=== PATIENT | female | born 1950 | race Caucasian/White ===

== ENCOUNTER 2021-04-01 08:16 | Day surgery (SDC) | payer OTHER ==
[~2021-04-01 08:16] MED LIST: AMLODIPINE BESY10 MG PO; ATORVASTATIN CA20 MG PO; BUPR150ER PO; Bactrim Ds Tab1 EACH PO; GABA100; HYDCHL25 PO; Lisinopril2.5 MG PO; Norco 5-325 Ta1 EACH PO; TYLENOL PM PO
--- NOTE | 2021-04-01 08:32 | NUR ---
ARRIVED INTO [facility] ADMISSION STARTED TO UNIT
--- NOTE | 2021-04-01 09:45 | NUR ---
04/01/21 0945 Mary Franks History, Chart, Medications and Allergies reviewed before start of procedure. Patient confirms NPO status and agrees with scheduled surgery. 3-LEAD EKG REVIEWED WITH PHYSICIAN PRIOR TO START OF PROCEDURE. MONITOR INTACT WITH CONTINUOUS PULSE OXIMETRY AND INTERMITTENT BP. PATIENT DETERMINED TO BE ASA APPROPRIATE FOR PROPOFOL SEDATION PRIOR TO START OF PROCEDURE BY .
--- NOTE | 2021-04-01 10:49 | NUR ---
Discharge instructions reviewed with patient. Patient verbalizes understanding. Copy given to patient to take home. Patient States Post-Procedure ride home has been arranged. Discharged via wheelchair to private car for ride home.
--- NOTE | 2021-04-01 12:09 | NUR ---
ASSUMED CARE OF PATIENT RECIEVED REPORT FROM MARY LOU
== END 2021-04-01 23:56 | disposition home or self-care (01) ==
LOC: ORSCMMR 08:16 → ORD 09:30 → ORSCMMR 09:30
PROVIDERS: Internal Medicine Gastroenterology
PROC: 0DBN8ZX Excision of Sigmoid Colon, Via Natural or Artificial Opening Endoscopic, Diagnostic (ICD-10-PCS; principal; 2021-04-01 09:30)
PROC: 0DBM8ZX Excision of Descending Colon, Via Natural or Artificial Opening Endoscopic, Diagnostic (ICD-10-PCS; principal; 2021-04-01 09:30)
PROC: 0DBP8ZX Excision of Rectum, Via Natural or Artificial Opening Endoscopic, Diagnostic (ICD-10-PCS; principal; 2021-04-01 09:30)
DX: Z12.11 Encounter for screening for malignant neoplasm of colon (principal); D12.5 Benign neoplasm of sigmoid colon; D12.4 Benign neoplasm of descending colon; D12.8 Benign neoplasm of rectum; I10 Essential (primary) hypertension; E78.00 Pure hypercholesterolemia, unspecified; F17.210 Nicotine dependence, cigarettes, uncomplicated; Z79.899 Other long term (current) drug therapy
CPT/HCPCS: 88305; J2704; J7120

== ENCOUNTER 2022-08-20 19:36 | Emergency (ER) | payer OTHER ==
[~2022-08-20] VITALS: Ht 160 cm; Wt 74.8 kg
[2022-08-20 20:18] LABS: BASOPHILS ABSOLUTE AUTO 0.08 K/mm3 (0.00-0.23); BASOPHILS PERCENT AUTO 0 % (0-2); EOSINOPHILS ABSOLUTE AUTO 0.02 K/mm3 (0.00-0.68); EOSINOPHILS PERCENT AUTO 0 % (0-6); Hematocrit 35.7 % (33.0-51.0); Hemoglobin 13.3 g/dL (11.5-16.0); IMMATURE GRAN ABSOLUTE AUTO 0.08 K/mm3 (0.00-0.10); IMMATURE GRAN PERCENT AUTO 0 % (0-1); LYMPHOCYTES ABSOLUTE AUTO 1.36 K/mm3 (0.84-5.20); LYMPHOCYTES PERCENT AUTO 7 % (21-46); MONOCYTES ABSOLUTE AUTO 0.54 K/mm3 (0.16-1.47); MONOCYTES PERCENT AUTO 3 % (4-13); Mean Corpuscular HGB 31.4 pg (26.0-34.0); Mean Corpuscular HGB Conc 37.3 g/dL (31.5-36.5); Mean Corpuscular Volume 84 fL (80-100); Mean Platelet Volume 9.7 fL (9.1-12.4); NEUTROPHILS ABSOLUTE AUTO 17.06 K/mm3 (1.96-9.15); NEUTROPHILS PERCENT AUTO 89 % (41-73); Platelet Count 401 K/mm3 (150-400); RDW Coefficient Variation 12.5 % (11.7-14.2); RDW Standard Deviation 38.1 fL (35.1-46.3); Red Blood Cell Count 4.24 M/mm3 (3.80-5.20); White Blood Cell Count 19.14 K/mm3 (4.00-11.30)
[2022-08-20 20:22] LABS: Source, Urine Clean Catch
[2022-08-20 20:37] LABS: Albumin, Blood 3.7 g/dL (3.4-5.0); Albumin/Globulin Ratio 0.9 (0.8-1.8); Bilirubin, Total 0.4 mg/dL (0.1-1.0); Bun/Creatinine Ratio 19.1 (12.0-20.0); Calcium, Blood 9.4 mg/dL (8.5-10.1); Creatinine, Blood 0.73 mg/dL (0.40-1.00); Globulin, Blood 4.2 g/dL (2.2-4.0); Potassium, Blood 3.1 mmol/L (3.5-5.5); Total Protein, Blood 7.9 g/dL (6.4-8.2)
[2022-08-20 20:41] LABS: Bilirubin, Urine Neg (Neg); Blood, Urine Neg (Neg); Glucose Qualitative, Urine Neg (Neg); Ketones, Urine 3+ (Neg); Leukocyte Esterase, Urine 1+ (Neg); Nitrite, Urine Neg (Neg); Protein, Urine 2+ (Neg); Urobilinogen, Urine 1+ (Normal)
[2022-08-20 20:49] LABS: Appearance, Urine Hazy (Clear); Color, Urine Yellow (P-Yellow)
[2022-08-20 20:50] LABS: Bacteria Mod /hpf; Red Blood Cells, Urine 0-2 /hpf (0-2); Squamous Epithelial Cells Mod /hpf (Few)
[2022-08-21] MEDS ORDERED: METR500 PO (00:53)
[2022-08-21] MEDS ORDERED: ONDA4ODT MM (00:53)
[2022-08-21] MEDS ORDERED: CIPR500 PO (00:53)
[2022-08-23] MEDS ORDERED: Percocet 5-3251 EACH PO (10:12)
== END 2022-08-21 00:54 | disposition home or self-care (01) ==
LOC: ER 19:36
PROVIDERS: Student in an Organized Health Care Education/Training Program
DX: K51.50 Left sided colitis without complications (principal); D72.829 Elevated white blood cell count, unspecified; E87.1 Hypo-osmolality and hyponatremia; E87.6 Hypokalemia; E86.0 Dehydration; R11.2 Nausea with vomiting, unspecified; I10 Essential (primary) hypertension; E78.5 Hyperlipidemia, unspecified; Z87.891 Personal history of nicotine dependence; Z79.899 Other long term (current) drug therapy; Z88.0 Allergy status to penicillin
CPT/HCPCS: 36415; 74177; 80053; 81001; 83690; 85025; 93005; 93010; 96361; 96365; 96375; 99284-25; A9270; J1885; J2405; J3475; J7030; Q9967

== ENCOUNTER 2024-05-03 08:17 | Day surgery (SDC) | payer OTHER ==
[~2024-05-03] VITALS: Ht 160 cm; Wt 81.7 kg
[~2024-05-03 08:17] MED LIST changes: +CIPR500 PO; +Lactated Ringer's 1,000 ML IV ONE; +METR500 PO; +ONDA4ODT MM; +Percocet 5-3251 EACH PO; +propofoL 50 ML IV ONE
[2024-05-03] MEDS ORDERED: HYDCHL25 (09:38)
[2024-05-03] MEDS ORDERED: XANAX0.25 MG (09:38)
[2024-05-03] MEDS ORDERED: IBU800 MG (09:39)
[2024-05-03] MEDS ORDERED: Lactated Ringer's 1,000 ML IV ONE (09:59)
[2024-05-03] MEDS ORDERED: Midazolam HCL 1 MG/ML 5MLVIAL ONE (10:15)
--- NOTE | 2024-05-03 11:00 | NUR ---
05/03/24 Lanette Obrien PT HAD 6/10 PAIN IN HER LOWER ABD. SHE HAD THIS PAIN BEFORE GOING INTO THE UPPER ENDOSCOPY. IN STEP DOWN PT REPORTED NO NEW OR DIFFERENT PAIN. PT DID NOT HAVE P/O FLUIDS IN STEP DOWN, SHE STATED "WERE GOING TO GET MILK SHAKES WHEN WE LEAVE HERE. PT TALKING TO AND ABLE TO GET DRESSED ON HER OWN. PT WHEELED OUT TO HER RIDE BY NEPTALI LYN.
[2024-05-03 11:01] VITALS: BP 117/65
== END 2024-05-03 10:58 | disposition home or self-care (01) ==
LOC: ORSCSDS 08:17
PROVIDERS: Surgery
PROC: 0DB68ZX Excision of Stomach, Via Natural or Artificial Opening Endoscopic, Diagnostic (ICD-10-PCS; principal; 2024-05-03 10:00)
DX: R10.13 Epigastric pain (principal); K44.9 Diaphragmatic hernia without obstruction or gangrene; K21.9 Gastro-esophageal reflux disease without esophagitis; R63.4 Abnormal weight loss; R11.10 Vomiting, unspecified; F41.9 Anxiety disorder, unspecified; I10 Essential (primary) hypertension; F17.210 Nicotine dependence, cigarettes, uncomplicated; Z79.899 Other long term (current) drug therapy
CPT/HCPCS: 88305; 88342; J2250; J2704; J7120

== ENCOUNTER 2024-07-17 08:46 | Observation (INO) | payer OTHER ==
[~2024-07-17] VITALS: Ht 160 cm; Wt 76.4 kg
[2024-07-17] VITALS (15 sets, daily range): BP systolic 118–141; BP diastolic 57–69
[~2024-07-17 08:46] MED LIST changes: +ACET500 PO; +ALPR.25 PO; +Acetaminophen 500 MG Tab PO SCH; +HYDCHL25; +IBUP800 PO; +LISI20 PO; -Lactated Ringer's 1,000 ML IV ONE; +Lactated Ringer's 1,000 ML IV SCH; -Lisinopril2.5 MG PO; +METO5A PO; +OMEP20ER PO; -propofoL 50 ML IV ONE
[2024-07-17] MEDS ORDERED: NIGHT TIME PAI1 EAC1 PO (09:52)
[2024-07-17] MEDS ORDERED: Bupivacaine 0.5% HCl 5 MG/ML 30MLVIAL ONE (09:54)
[2024-07-17] MEDS ORDERED: propofoL 20 ML IV ONE (10:02)
[2024-07-17] MEDS ORDERED: FentaNYL Citrate 50 MCG/ML 2 ML Injection ONE (10:02)
[2024-07-17 10:03] LABS: Bun/Creatinine Ratio 33.7 (12.0-20.0); Calcium, Blood 10.6 mg/dL (8.5-10.1); Creatinine, Blood 0.8 mg/dL (0.40-1.00); Potassium, Blood 3.3 mmol/L (3.5-5.5)
[2024-07-17] MEDS ORDERED: Lidocaine HCl 2% 20 ML MDV ONE (10:04)
[2024-07-17] MEDS ORDERED: Rocuronium Bromide 10 MG/ML 5ML Injection IV ONE ×2 (10:04→11:29)
[2024-07-17] MEDS ORDERED: HYDROmorphone HCl/Pf 1MG SYR IV PRN ×3 (10:15→12:00)
[2024-07-17] MEDS ORDERED: ePHEDrine Sulfate 50 MG/ML 1ML Injection IV PRN (10:20)
[2024-07-17] MEDS ORDERED: Scopolamine Hydrobromide Patch TOP SCH (10:20)
[2024-07-17] MEDS ORDERED: Ondansetron HCl 2 MG / ML 2ML Vial IV PRN ×2 (10:20→12:00)
[2024-07-17] MEDS ORDERED: FentaNYL Citrate 50 MCG/ML 2 ML Injection IV PRN ×2 (10:20)
[2024-07-17] MEDS ORDERED: HydrALAZINE HCl 20 MG / ML 1ML Vial IV PRN (10:20)
[2024-07-17] MEDS ORDERED: Albuterol 2.5 MG/3 ML VIAL INH PRN (10:20)
[2024-07-17] MEDS ORDERED: Ondansetron HCl 2 MG / ML 2ML Vial ONE ×2 (10:24→12:09)
[2024-07-17] MEDS ORDERED: Dexamethasone Sod Phos 10 MG/ML 1ML VIAL ONE (10:24)
[2024-07-17] MEDS ORDERED: Labetalol HCL 5 MG/ML 4ML Injection (Single Dose) IV PRN (10:25)
[2024-07-17] MEDS ORDERED: HYDROmorphone HCl/Pf 1MG SYR ONE (10:46)
[2024-07-17] MEDS ORDERED: Phenylephrine HCl 100 MCG/ML-NS 10MLSYR (1MG/10ML) ONE (10:55)
[2024-07-17] MEDS ORDERED: Sugammadex Sodium 200 MG/2ML SDV (100 MG/ML) ONE (11:45)
[2024-07-17] MEDS ORDERED: OxyCODONE HCL 5 MG TAB PO PRN (12:00)
[2024-07-17] MEDS ORDERED: Metoclopramide HCl 5MG / ML 2ML Vial IV PRN (12:00)
[2024-07-17] MEDS ORDERED: FLU VACC TS2024-25(6MOS UP)/PF 45 MCG/0.5 ML SYRINGE IM SCH (12:00)
[2024-07-17] MEDS ORDERED: Ketorolac Tromethamine 15mg Vial IV PRN (12:10)
[2024-07-17] MEDS ORDERED: Scopolamine Hydrobromide Patch ONE (12:11)
--- NOTE | 2024-07-17 16:41 | NUR ---
SUMMARY POD0 FUNDOPLICATION, 4 LAP SITES WITH WOUND GLUE,ONLINE EDUCATION MANAGER, C/D/I. PATIENT IS QUITE NAUSEATED ON ARRIVAL. MEDICATED PER EMAR FOR BOTH PAIN AND NAUSEA. ABLE TO REST FOR A COUPLE HOURS. UP THIS AFTERNOON TO THE BATHROOM, VOIDED AND IN THE CHAIR WITH AN ICE PACK ON THE NECK. CURRENTLY STILL NAUSEATED, ORDER FOR ANOTHER 5MG OF REGLAN GIVEN FROM DR. NARAYAN VSHumberto. CALL LIGHT IN REACH.
[2024-07-17] MEDS ORDERED: Metoclopramide HCl 5MG / ML 2ML Vial IV ONE (16:45)
--- NOTE | 2024-07-17 17:38 | NUR ---
UPDATE PATIENT IS LESS NAUSEATED AND IS UP WALKING HALLS THIS EVENING, REPORTS SOME GAS PAIN. ABLE TO TOLERATE SOME SIPS OF WATER.
[2024-07-17] MEDS ORDERED: AmLODIPine Besylate 5 MG Tab PO SCH (21:00)
[2024-07-18 00:07] VITALS: BP 136/80
[2024-07-18 03:59] VITALS: BP 115/64
--- NOTE | 2024-07-18 04:42 | NUR ---
NOC SUMMARY- PAIN MANAGED WELL. PT AMBULATORY AND VOIDING IN THE BATHROOM. LAP SITES C/D/I. PT TOLERATING SMALL SIPS OF WATER AND PO MEDS. PT HAD NO REPORTED EPISODES OF NAUSEA. PT HAS BEEN ABLE TO SLEEP THIS SHIFT. CALL LIGHT IN REACH.
[2024-07-18 06:51] LABS: Hematocrit 30.1 % (33.0-51.0); Hemoglobin 10.8 g/dL (11.5-16.0); Mean Corpuscular HGB 31.3 pg (26.0-34.0); Mean Corpuscular HGB Conc 35.9 g/dL (31.5-36.5); Mean Corpuscular Volume 87 fL (80-100); Mean Platelet Volume 10.3 fL (9.1-12.4); Platelet Count 362 K/mm3 (150-400); RDW Coefficient Variation 13.1 % (11.7-14.2); RDW Standard Deviation 41.4 fL (35.1-46.3); Red Blood Cell Count 3.45 M/mm3 (3.80-5.20)
[2024-07-18 07:05] VITALS: BP 116/70
[2024-07-18] MEDS ORDERED: Atorvastatin 10 MG Tab PO SCH (09:00)
[2024-07-18] MEDS ORDERED: HydroCHLOROthiazide 25 mg Tab PO SCH (09:00)
[2024-07-18] MEDS ORDERED: Lisinopril 20 MG Tab PO SCH (09:00)
[2024-07-18] MEDS ORDERED: Enoxaparin 40 MG/0.4 ML SYR SC SCH (09:00)
[2024-07-18] MEDS ORDERED: OXYC5 PO (09:29)
--- NOTE | 2024-07-18 10:26 | NUR ---
DISCHARGE PATIENT AOX4, IND, PASSING GAS, VOIDING, TOLERATING PO INTAKE. VSS, ALL DISCHARGE INSTRCTIONS READ AND VERBALIZES UNDERSTANDING. ALL BELONGINGS WITH PATIENT AND SPOUSE, THEY LEAVE PRIVATE VEHICLE.
== END 2024-07-18 09:45 | disposition home or self-care (01) ==
LOC: MEDS 08:46 → PRE IP 08:46 → MEDS 08:46 → PRE IP 10:00 → MEDS 10:31 → SURS 12:44
PROVIDERS: Anesthesiology; ADMIT Surgery
PROC: 0BQT3ZZ Repair Diaphragm, Percutaneous Approach (ICD-10-PCS; principal; 2024-07-17 10:00)
DX: K44.9 Diaphragmatic hernia without obstruction or gangrene (principal); K21.9 Gastro-esophageal reflux disease without esophagitis; R11.0 Nausea; I10 Essential (primary) hypertension; Z79.899 Other long term (current) drug therapy; Z88.0 Allergy status to penicillin; Z87.891 Personal history of nicotine dependence
CPT/HCPCS: 36415; 80048; 85027; A9270; J1100; J1171; J2371; J2405; J2704; J2765; J3010; J7120

== ENCOUNTER 2024-07-21 16:01 | Inpatient (IN) | payer OTHER ==
[~2024-07-21] VITALS: Ht 160 cm; Wt 72.6 kg
[~2024-07-21 16:01] MED LIST changes: -Acetaminophen 500 MG Tab PO SCH; +D5W-NS 1,000 ML IV SCH; -Lactated Ringer's 1,000 ML IV SCH; +NIGHT TIME PAI1 EAC1 PO; +OXYC5 PO
[2024-07-21] MEDS ORDERED: Ondansetron HCl 2 MG / ML 2ML Vial IV ONE (16:20)
[2024-07-21 16:33] LABS: BASOPHILS ABSOLUTE AUTO 0.03 K/mm3 (0.00-0.23); BASOPHILS PERCENT AUTO 0 % (0-2); EOSINOPHILS ABSOLUTE AUTO 0.01 K/mm3 (0.00-0.68); EOSINOPHILS PERCENT AUTO 0 % (0-6); Hematocrit 31.4 % (33.0-51.0); Hemoglobin 11.5 g/dL (11.5-16.0); IMMATURE GRAN ABSOLUTE AUTO 0.07 K/mm3 (0.00-0.10); IMMATURE GRAN PERCENT AUTO 0 % (0-1); LYMPHOCYTES ABSOLUTE AUTO 0.79 K/mm3 (0.84-5.20); LYMPHOCYTES PERCENT AUTO 5 % (21-46); MONOCYTES ABSOLUTE AUTO 1.16 K/mm3 (0.16-1.47); MONOCYTES PERCENT AUTO 7 % (4-13); Mean Corpuscular HGB 31.3 pg (26.0-34.0); Mean Corpuscular HGB Conc 36.6 g/dL (31.5-36.5); Mean Corpuscular Volume 85 fL (80-100); Mean Platelet Volume 9.9 fL (9.1-12.4); NEUTROPHILS ABSOLUTE AUTO 15.35 K/mm3 (1.96-9.15); NEUTROPHILS PERCENT AUTO 88 % (41-73); Platelet Count 338 K/mm3 (150-400); RDW Coefficient Variation 12.9 % (11.7-14.2); RDW Standard Deviation 40.2 fL (35.1-46.3); Red Blood Cell Count 3.68 M/mm3 (3.80-5.20); White Blood Cell Count 17.41 K/mm3 (4.00-11.30)
[2024-07-21 16:51] LABS: Albumin, Blood 3.5 g/dL (3.4-5.0); Albumin/Globulin Ratio 0.8 (0.8-1.8); Bilirubin, Total 1.2 mg/dL (0.1-1.0); Calcium, Blood 9.1 mg/dL (8.5-10.1); Creatinine, Blood 1.73 mg/dL (0.40-1.00); Globulin, Blood 4.3 g/dL (2.2-4.0); Potassium, Blood 2.8 mmol/L (3.5-5.5); Total Protein, Blood 7.8 g/dL (6.4-8.2)
[2024-07-21] MEDS ORDERED: NS 1,000 ML IV SCH (19:10)
[2024-07-21] MEDS ORDERED: Metoclopramide HCl 5MG / ML 2ML Vial IV ONE (19:20)
[2024-07-21] MEDS ORDERED: Ketorolac Tromethamine 30mg Vial IV ONE (19:20)
[2024-07-21 19:29] LABS: Beta-hydroxybutyrate 9.5 mg/dL (0.2-2.8); Magnesium, Blood 1.5 mg/dL (1.6-2.4); Phosphorus, Blood 2.1 mg/dL (2.5-4.9)
[2024-07-21] MEDS ORDERED: Potassium Chl 20MEQ/Water100ML 100 ML IV SCH (20:10)
[2024-07-21] MEDS ORDERED: Magnesium Sulf 2 GM/Water 50ML 50 ML IV ONE (20:15)
[2024-07-21] MEDS ORDERED: IBU800 M1 PO (23:18)
[2024-07-21] MEDS ORDERED: Ondansetron 4 MG TAB PO PRN (23:25)
[2024-07-21] MEDS ORDERED: Mag Sulfate 1 GM/D5% 100ML 100 ML IV STA (23:26)
[2024-07-21] MEDS ORDERED: Potassium Phosphate Dibasic 20 MM in Dextrose 5% 500 ML IV STA (23:27)
[2024-07-21] MEDS ORDERED: D5W-NS 1,000 ML IV SCH (23:30)
[2024-07-21 23:57] VITALS: BP 111/56
[2024-07-22 01:26] LABS: Adenovirus F 40/41 Not Detected (NOT DETECT); Astrovirus Not Detected (NOT DETECT); Campylobacter Sp Not Detected (NOT DETECT); Cryptosporidium Not Detected (NOT DETECT); Cyclospora Cayetanensis Not Detected (NOT DETECT); E. Coli O157 Not Detected (NOT DETECT); Entamoeba Histolytica Not Detected (NOT DETECT); Enteroaggregative E. coli-EAEC Not Detected (NOT DETECT); Enteropathogenic E. coli-EPEC Not Detected (NOT DETECT); Enterotoxigenic E. coli-ETEC Not Detected (NOT DETECT); Giardia Lamblia Not Detected (NOT DETECT); Norovirus GI/GII Not Detected (NOT DETECT); Plesiomonas Shigelloides Not Detected (NOT DETECT); Rotavirus A Not Detected (NOT DETECT); Salmonella Sp Detected (NOT DETECT); Sapovirus Not Detected (NOT DETECT); Shiga Toxin-prod E. coli-STEC Not Detected (NOT DETECT); Shigella/Enteroin E. coli-EIEC Not Detected (NOT DETECT); Vibrio Cholerae Not Detected (NOT DETECT); Vibrio Sp Not Detected (NOT DETECT); Yersinia Enterocolitica Not Detected (NOT DETECT)
[2024-07-22 01:31] LABS: Source, Urine Straight Cath
[2024-07-22 02:14] LABS: Bilirubin, Urine Neg (Neg); Blood, Urine 3+ (Neg); Glucose Qualitative, Urine Neg (Neg); Ketones, Urine Neg (Neg); Leukocyte Esterase, Urine 3+ (Neg); Nitrite, Urine Neg (Neg); Protein, Urine 2+ (Neg); Specific Gravity, Urine 1.015 (1.003-1.022); Urobilinogen, Urine NORM (Normal)
[2024-07-22 02:19] LABS: Appearance, Urine Hazy (Clear); Color, Urine Pale Yellow (P-Yellow)
[2024-07-22 02:20] LABS: Bacteria Mod /hpf; Red Blood Cells, Urine 0-2 /hpf (0-2); Squamous Epithelial Cells Mod /hpf (Few); White Blood Cells, Urine 25-50 /hpf (0-5)
[2024-07-22 03:09] VITALS: BP 121/57
--- NOTE | 2024-07-22 04:18 | NUR ---
SHIFT SUMM: PT WAS AN ADMIT FROM THE ED WHO IS A 73 YO FULL CODE WHO WAS ADMITTED FOR ENTERITIS.PT HAS EXPERIENCED NAUSEA MOST OF THE SHIFT AND WAS GIVEN ZOFRAN. PT WAS IN ISO TO RULE OUT C-DIFF AND URINE/STOOL SAMPLES WERE SENT AND PT WAS POSITIVE FOR POSSIBLE UTI AND SALMONELLA IN THE STOOL. PT HAS BEEN GIVEN IV MAG AND POTTASIUM THIS SHIFT (SEE eMAR). PT WAS RECENTLY AT [facility] FOR A HERNIA REPAIR ON 07/17/24 (INCISIONS ON STOMACH LOOK WNL). PT HAS HAD LOOSE GREEN DIARRHEA AND URGENCY THE WHOLE SHIFT WHICH HAS LEFT HER FEELING UNWELL AND "SHAKY" PT WAS ABLT TO TOLERATE SOME ICE CHIPS AND CHICKEN BROTH. PT HAS NOT EXPRESSED ANY PAIN AND IS NOW RESTING. PT HAS SCDS ON AND CALLS NEEDED. PT KNOWS TO CALL ME WHEN SHE HAS TO USE THE RESTROOM FOR SAFETY AND TO PREVENT FALLS WITH LINES AND SCD'S. CALL LIGHT IN REACH.
[2024-07-22 04:22] LABS: BASOPHILS ABSOLUTE AUTO 0.02 K/mm3 (0.00-0.23); BASOPHILS PERCENT AUTO 0 % (0-2); EOSINOPHILS ABSOLUTE AUTO 0.01 K/mm3 (0.00-0.68); EOSINOPHILS PERCENT AUTO 0 % (0-6); Hematocrit 27.2 % (33.0-51.0); IMMATURE GRAN ABSOLUTE AUTO 0.05 K/mm3 (0.00-0.10); IMMATURE GRAN PERCENT AUTO 1 % (0-1); LYMPHOCYTES ABSOLUTE AUTO 0.61 K/mm3 (0.84-5.20); LYMPHOCYTES PERCENT AUTO 6 % (21-46); MONOCYTES ABSOLUTE AUTO 0.84 K/mm3 (0.16-1.47); MONOCYTES PERCENT AUTO 8 % (4-13); Mean Corpuscular HGB 31.6 pg (26.0-34.0); Mean Corpuscular HGB Conc 36.8 g/dL (31.5-36.5); Mean Corpuscular Volume 86 fL (80-100); Mean Platelet Volume 9.9 fL (9.1-12.4); NEUTROPHILS ABSOLUTE AUTO 8.64 K/mm3 (1.96-9.15); NEUTROPHILS PERCENT AUTO 85 % (41-73); Platelet Count 238 K/mm3 (150-400); RDW Standard Deviation 41.1 fL (35.1-46.3); Red Blood Cell Count 3.16 M/mm3 (3.80-5.20); White Blood Cell Count 10.17 K/mm3 (4.00-11.30)
[2024-07-22 04:40] LABS: Albumin/Globulin Ratio 0.8 (0.8-1.8); Bilirubin, Total 0.6 mg/dL (0.1-1.0); Bun/Creatinine Ratio 27.4 (12.0-20.0); Calcium, Blood 8.4 mg/dL (8.5-10.1); Creatinine, Blood 1.35 mg/dL (0.40-1.00); Globulin, Blood 3.6 g/dL (2.2-4.0); Magnesium, Blood 2.7 mg/dL (1.6-2.4); Phosphorus, Blood 2.9 mg/dL (2.5-4.9); Potassium, Blood 2.8 mmol/L (3.5-5.5); Total Protein, Blood 6.6 g/dL (6.4-8.2)
[2024-07-22] MEDS ORDERED: Loperamide HCl 2 MG Cap PO PRN (05:15)
--- NOTE | 2024-07-22 05:21 | NUR ---
HOSPITALIST CALLED AND NOTIFIED OF LAB WORK. DOCTOR WILL LOOK AT CHART AND PUT IN ORDERS AD NEEDED. DOCTOR ORDERED IMODIUM 2MG Q4 NEEDED FOR DIARRHEA.
[2024-07-22 08:18] VITALS: BP 112/60
[2024-07-22] MEDS ORDERED: Metoclopramide HCl 5MG / ML 2ML Vial IV PRN (08:45)
[2024-07-22] MEDS ORDERED: Heparin Sodium 5000 Units/ML 1ML MDV SC SCH (09:00)
[2024-07-22] MEDS ORDERED: Acetaminophen 325 MG TABLET PO PRN (10:20)
[2024-07-22] MEDS ORDERED: CefTRIAXone Sodium 2,000 MG in NS 100 ML IV SCH (10:38)
[2024-07-22 12:16] VITALS: BP 121/109
[2024-07-22 16:30] VITALS: BP 127/93
--- NOTE | 2024-07-22 16:42 | NUR ---
PT IS A/OX4, PLEASANT AND COOPERATIVE. THE PT IS UP IND IN HER ROOM TO THE BATHROOM. THE PT HAS BEEN NAUSATED AND DRY HEAVED BUT HAS NOT VOMITED. ZOFRAN AND REGLAN WAS GIVEN TODAY. PT WAS MEDICATED FOR H/A WITH TYLENOL THIS AM. THE PT WAS MEDICATED FOR LOW GRADE TEMP OF 100.6 THIS AFTERNOON. PT HAS HAD THE CHILLS T/O THE DAY. PT HAS 4 SMALL PUNCTURE WOUNDS FROM LAPROSCOPIC HERNIA REPAIR THAT APPEAR TO BE HEALING, NO REDNESS,DRAINAGE OR ODOR NOTICED. PTS WAS IN TO VISIT. PT NOT ABLE TO TAKE MUCH IN PO JUST SIPS OF CLEARS. CALL LIGHT IN REACH.
[2024-07-22] MEDS ORDERED: NS 1,000 ML IV SCH (17:05)
--- NOTE | 2024-07-22 18:02 | NUR ---
1710 assumed care of patient. pt states no needs at this time and does not want any fluids as has been nauseated throughout the day
--- NOTE | 2024-07-22 18:49 | NUR ---
PT DECLINES DINNER DUE TO NAUSEA WHEN TRIED OTHER MEALS TODAY, PT LIGHTS TURNED OFF SO SHE CAN NAP
[2024-07-22 21:02] VITALS: BP 106/52
--- NOTE | 2024-07-23 03:45 | NUR ---
SHERIFF'S DETECTIVE SUMMARY: PT ADMITTED FOR ENTERITIS. FULL CODE. A&O X4, MAKES NEEDS KNOWN TO STAFFF AND USES CALL LIGHT APPROPRIATELY. INDEPENDENT WITH CARES IN ROOM. C/O NAUSEA T/O SHIFT. ZOFRAN GIVEN X2 PER EMAR ORDERS. ENCOURAGED PT TO TAKE IN SMALL SLOW SIPS SPARINGLY T/O SHIFT TO AVOID WORSENING NAUSEA. NS INFUSING AT 100 ML /HR PER EMAR ORDER. LOOSE STOOLS CONTINUE T/O SHIFT. MEDICATED WITH IMODIUM X1 PER EMAR ORDER. DENIES PAIN. AFEBRILE, VSS. CALL LIGHT IN REACH. BED IN LOWEST POSITION.
[2024-07-23 04:35] VITALS: BP 124/64
--- NOTE | 2024-07-23 05:22 | NUR ---
CONSULTED WITH DR. JUDGE RE PT'S NAUSEA AND EFFECTIVENSS OF PO ZOFRAN. NEW ORDER OBTAINED FOR ZOFRAN 4MG IV Q 6H PRN N/V.
[2024-07-23] MEDS ORDERED: Ondansetron HCl 2 MG / ML 2ML Vial IV PRN (05:25)
--- NOTE | 2024-07-23 05:43 | NUR ---
PT REPORTS IV REGLAN WAS EFFECTIVE. DENIES NAUSEA AT THIS TIME.
[2024-07-23 06:17] LABS: BASOPHILS ABSOLUTE AUTO 0.02 K/mm3 (0.00-0.23); BASOPHILS PERCENT AUTO 0 % (0-2); EOSINOPHILS PERCENT AUTO 0 % (0-6); Hematocrit 25.9 % (33.0-51.0); Hemoglobin 9.4 g/dL (11.5-16.0); IMMATURE GRAN ABSOLUTE AUTO 0.04 K/mm3 (0.00-0.10); IMMATURE GRAN PERCENT AUTO 1 % (0-1); LYMPHOCYTES ABSOLUTE AUTO 0.55 K/mm3 (0.84-5.20); LYMPHOCYTES PERCENT AUTO 9 % (21-46); MONOCYTES ABSOLUTE AUTO 0.42 K/mm3 (0.16-1.47); MONOCYTES PERCENT AUTO 7 % (4-13); Mean Corpuscular HGB 31.3 pg (26.0-34.0); Mean Corpuscular HGB Conc 36.3 g/dL (31.5-36.5); Mean Corpuscular Volume 86 fL (80-100); Mean Platelet Volume 10.7 fL (9.1-12.4); NEUTROPHILS PERCENT AUTO 83 % (41-73); Platelet Count 200 K/mm3 (150-400); RDW Standard Deviation 41.2 fL (35.1-46.3); White Blood Cell Count 6.13 K/mm3 (4.00-11.30)
[2024-07-23 06:47] LABS: Albumin, Blood 2.6 g/dL (3.4-5.0); Albumin/Globulin Ratio 0.8 (0.8-1.8); Bilirubin, Total 0.4 mg/dL (0.1-1.0); Bun/Creatinine Ratio 16.4 (12.0-20.0); Calcium, Blood 8.2 mg/dL (8.5-10.1); Creatinine, Blood 0.79 mg/dL (0.40-1.00); Globulin, Blood 3.4 g/dL (2.2-4.0); Magnesium, Blood 1.6 mg/dL (1.6-2.4); Phosphorus, Blood 1.5 mg/dL (2.5-4.9); Potassium, Blood 2.6 mmol/L (3.5-5.5)
[2024-07-23] MEDS ORDERED: Potassium Phosphate Dibasic 30 MM in Dextrose 5% 500 ML IV STA (07:17)
[2024-07-23] MEDS ORDERED: Magnesium Sulf 2 GM/Water 50ML 50 ML IV ONE (07:20)
[2024-07-23 07:24] VITALS: BP 122/61
[2024-07-23 15:51] VITALS: BP 117/54
--- NOTE | 2024-07-23 16:36 | NUR ---
SHIFT SUMMARY PT AOX4, COOPERATIVE, ABLE TO MAKE NEEDS KNOWN. PT HAS NOT HAD ANY COMPLAINTS OF PAIN FOR ENTIRE SHIFT. IND IN ROOM, CONTINENT. IV POTASSIUM HAS BEEN INFUSING ALL DAY, HAD TO BE TITRATED DOWN TO 70ML/HR DUE TO PAIN INTOLERANCE, MD NOTIFIED. PT DIET ADVANCED TO FULL LIQUID DIET OR TOLERATED. TELE STILL ACTIVE. BED IN LOWEST POSITION, CALL LIGHT WITHIN REACH.
[2024-07-23 19:44] VITALS: BP 143/71
[2024-07-23] MEDS ORDERED: Potassium Chloride 40 MEQ in NS 250 ML IV SCH (22:00)
[2024-07-24 00:28] VITALS: BP 118/55
[2024-07-24 04:25] VITALS: BP 120/61
[2024-07-24 06:10] LABS: BASOPHILS ABSOLUTE AUTO 0.03 K/mm3 (0.00-0.23); BASOPHILS PERCENT AUTO 1 % (0-2); EOSINOPHILS ABSOLUTE AUTO 0.03 K/mm3 (0.00-0.68); EOSINOPHILS PERCENT AUTO 1 % (0-6); Hematocrit 27.9 % (33.0-51.0); IMMATURE GRAN ABSOLUTE AUTO 0.08 K/mm3 (0.00-0.10); IMMATURE GRAN PERCENT AUTO 1 % (0-1); LYMPHOCYTES ABSOLUTE AUTO 1.08 K/mm3 (0.84-5.20); LYMPHOCYTES PERCENT AUTO 17 % (21-46); MONOCYTES ABSOLUTE AUTO 0.69 K/mm3 (0.16-1.47); MONOCYTES PERCENT AUTO 11 % (4-13); Mean Corpuscular HGB 30.7 pg (26.0-34.0); Mean Corpuscular HGB Conc 35.8 g/dL (31.5-36.5); Mean Corpuscular Volume 86 fL (80-100); NEUTROPHILS ABSOLUTE AUTO 4.62 K/mm3 (1.96-9.15); NEUTROPHILS PERCENT AUTO 71 % (41-73); Platelet Count 206 K/mm3 (150-400); RDW Coefficient Variation 12.8 % (11.7-14.2); RDW Standard Deviation 40.1 fL (35.1-46.3); Red Blood Cell Count 3.26 M/mm3 (3.80-5.20); White Blood Cell Count 6.53 K/mm3 (4.00-11.30)
[2024-07-24 06:37] LABS: Albumin, Blood 2.6 g/dL (3.4-5.0); Albumin/Globulin Ratio 0.7 (0.8-1.8); Bilirubin, Total 0.5 mg/dL (0.1-1.0); Bun/Creatinine Ratio 10.2 (12.0-20.0); Calcium, Blood 8.4 mg/dL (8.5-10.1); Creatinine, Blood 0.69 mg/dL (0.40-1.00); Globulin, Blood 3.5 g/dL (2.2-4.0); Phosphorus, Blood 2.3 mg/dL (2.5-4.9); Total Protein, Blood 6.1 g/dL (6.4-8.2)
--- NOTE | 2024-07-24 06:43 | NUR ---
MACHINE SOLE LEVELER SUMMARY: PT A&O X4. DENIES N/V AND PAIN T/O SHIFT. PT WITH A TEMP OF 100.9, TYLENOL ADMINISTERED; EFFECTIVE. NO ACUTE CHANGES. INDEPENDENT IN ROOM AND WITH BED MOBILITY. IV POTASSIUM ADMINISTERED ORDERED. TELE IN PLACE SR WITH PVC'S IN 70'S. PT TOLERATING FULL LIQUIDS. CALL LIGHT IN REACH. CARES ONGOING ORDERED.
[2024-07-24] MEDS ORDERED: Potassium Chl 20MEQ/Water100ML 100 ML IV SCH (07:15)
[2024-07-24 07:21] VITALS: BP 142/69
[2024-07-24] MEDS ORDERED: Potassium Phos/Sodium Phos 250 MG PACK PO SCH (08:07)
[2024-07-24 15:05] VITALS: BP 148/72
[2024-07-24] MEDS ORDERED: Potassium Chloride 40 MEQ in NS 250 ML IV SCH (16:00)
--- NOTE | 2024-07-24 16:48 | NUR ---
SHIFT SUMMARY PT AOX4, COOPERATIVE, ABLE TO MAKE NEEDS KNOWN. PT HAS BEEN INFUSING POTASSIUM ALL SHIFT, TOLERATING DECENTLY. IND IN ROOM, CONTINENT AND ABLE TO USE BATHROOM IND. AMBULATED HALLS WITH STAFF MEMBERS. POSSIBLE DC 07/25/24. FULL LIQUID DIET. BED IN LOWEST POSITION, CALL LIGHT WITHIN REACH.
[2024-07-24 20:37] VITALS: BP 146/72
[2024-07-25 00:16] VITALS: BP 142/71
[2024-07-25 04:26] VITALS: BP 135/68
--- NOTE | 2024-07-25 05:31 | NUR ---
SHIFT SUMMARY PT ALERT AND ORIENTED TIMES 4. PT ADMITTED FOR INCREASED NAUSEA AND DIARRHEA FOLLOWING A YOLANDA FUNDOPLICATION AND HERNIA REPAIR PROCEDURE. PT HAS BEEN IMPROVING AND IS POSSIBLE TO DC IN AM 07/25/24. REMOVED LEFT WRIST IV PT HAS RIGHT FOREARM IV. PT TOLERATED WELL. REMOVED PT FROM TELE PER DR/ HELIUM ARC WELDER. PT S BED IN LOW POSITION, CALL LIGHT WITHIN REACH, RAILS TIMES 2.
[2024-07-25 05:46] LABS: BASOPHILS ABSOLUTE AUTO 0.05 K/mm3 (0.00-0.23); BASOPHILS PERCENT AUTO 1 % (0-2); EOSINOPHILS ABSOLUTE AUTO 0.07 K/mm3 (0.00-0.68); EOSINOPHILS PERCENT AUTO 1 % (0-6); Hemoglobin 9.7 g/dL (11.5-16.0); IMMATURE GRAN ABSOLUTE AUTO 0.19 K/mm3 (0.00-0.10); IMMATURE GRAN PERCENT AUTO 2 % (0-1); LYMPHOCYTES ABSOLUTE AUTO 1.83 K/mm3 (0.84-5.20); LYMPHOCYTES PERCENT AUTO 21 % (21-46); MONOCYTES ABSOLUTE AUTO 1.01 K/mm3 (0.16-1.47); MONOCYTES PERCENT AUTO 12 % (4-13); Mean Corpuscular HGB 30.7 pg (26.0-34.0); Mean Corpuscular HGB Conc 35.9 g/dL (31.5-36.5); Mean Corpuscular Volume 85 fL (80-100); Mean Platelet Volume 10.3 fL (9.1-12.4); NEUTROPHILS ABSOLUTE AUTO 5.52 K/mm3 (1.96-9.15); NEUTROPHILS PERCENT AUTO 64 % (41-73); Platelet Count 242 K/mm3 (150-400); RDW Coefficient Variation 13.1 % (11.7-14.2); RDW Standard Deviation 41.3 fL (35.1-46.3); Red Blood Cell Count 3.16 M/mm3 (3.80-5.20); White Blood Cell Count 8.67 K/mm3 (4.00-11.30)
[2024-07-25 06:39] LABS: Bun/Creatinine Ratio 8.9 (12.0-20.0); Calcium, Blood 8.6 mg/dL (8.5-10.1); Creatinine, Blood 0.68 mg/dL (0.40-1.00); Magnesium, Blood 1.4 mg/dL (1.6-2.4); Phosphorus, Blood 2.3 mg/dL (2.5-4.9); Potassium, Blood 3.5 mmol/L (3.5-5.5)
[2024-07-25 08:32] VITALS: BP 141/64
[2024-07-25] MEDS ORDERED: Mag Sulfate 1 GM/D5% 100ML 100 ML IV STA (09:09)
[2024-07-25] MEDS ORDERED: Potassium Phos/Sodium Phos 250 MG PACK PO ONE (09:20)
[2024-07-25] MEDS ORDERED: VISBIOME 112.51 EACH PO (11:37)
[2024-07-25] MEDS ORDERED: CEPH500 PO (11:38)
--- NOTE | 2024-07-25 12:36 | NUR ---
DISCHARGE NOTE PATIENT A/OX4, ABLE TO MAKE NEEDS KNOWN. INDEPENDENT IN ROOM. ELECTROLYTES ADMINISTERED PER MAR. TOLERATING FULL LIQUID DIET, DENIES ANY PAIN. INCISION SITES TO ABDOMEN APPEAR WNL. CONTINUES WITH LOOSE STOOLS. IV REMOVED PRIOR TO DISCHARGE. PATIENT EDUCATED REGARDING FOLLOW UP APPOINTMENTS AND NEW MEDICATIONS. AT BEDSIDE DURING DISCHARGE INSTRUCTIONS. PATIENT AND SPOUSE WITH NO QUESTION AT TIME OF DISCHARGE. PATIENT ASSISTED TO FAMILY VEHICLE VIA WHEELCHAIR BY [employer] STAFF.
== END 2024-07-25 12:21 | disposition home or self-care (01) | DRG 372 ==
LOC: ER 16:01 → ERHOLD 16:02 → MEDS 16:02 → ENPENDDIS 07-25 11:33 → MEDS 07-25 12:21
PROVIDERS: Emergency Medicine; Family Medicine; Student in an Organized Health Care Education/Training Program; ADMIT Internal Medicine
DX: A02.0 Salmonella enteritis (principal); E87.1 Hypo-osmolality and hyponatremia; N17.9 Acute kidney failure, unspecified; K91.89 Other postprocedural complications and disorders of digestive system; I10 Essential (primary) hypertension; E78.5 Hyperlipidemia, unspecified; E87.6 Hypokalemia; E87.8 Other disorders of electrolyte and fluid balance, not elsewhere classified; K80.20 Calculus of gallbladder without cholecystitis without obstruction; Z96.659 Presence of unspecified artificial knee joint; K21.9 Gastro-esophageal reflux disease without esophagitis; E83.42 Hypomagnesemia; D64.9 Anemia, unspecified; E83.39 Other disorders of phosphorus metabolism; Z90.49 Acquired absence of other specified parts of digestive tract; Z88.0 Allergy status to penicillin; Z79.811 Long term (current) use of aromatase inhibitors; Z79.899 Other long term (current) drug therapy; Z79.891 Long term (current) use of opiate analgesic; Z87.19 Personal history of other diseases of the digestive system; Z90.89 Acquired absence of other organs; Z98.890 Other specified postprocedural states; Z79.1 Long term (current) use of non-steroidal anti-inflammatories (NSAID); Z87.891 Personal history of nicotine dependence; Z90.710 Acquired absence of both cervix and uterus
CPT/HCPCS: 36415; 74177; 76705; 80048; 80053; 81001; 82010; 83605; 83690; 83735; 84100; 84132; 85025; 86140; 87086; 87507; 96361; 96365; 96368; 96375; 99285-25; A9270; G0378; J0696; J1644; J2405; J2765; J3475; J3480; J7030; J7042; J7050; J7060; Q9967